=== PATIENT | male | born 1975 | race Caucasian/White ===

== ENCOUNTER 2019-12-15 16:41 | Emergency (ER) | payer BC ==
[~2019-12-15] VITALS: Ht 177.8 cm; Wt 104.3 kg
[~2019-12-15 16:41] MED LIST: BACTRIM DS TAB1 EACH PO; NORCO 5-325 TA1 EACH PO
[2019-12-15] MEDS ORDERED: CLONAZEPAM 0.50.5 M1 PO (16:58)
[2019-12-15 19:20] VITALS: BP 116/71
== END 2019-12-15 19:20 | disposition home or self-care (01) ==
LOC: M.ERS 16:41
DX: S13.4XXA Sprain of ligaments of cervical spine, initial encounter (principal); R07.81 Pleurodynia; R51 Headache; W18.39XA Other fall on same level, initial encounter; Y93.89 Activity, other specified; Y92.89 Other specified places as the place of occurrence of the external cause; Y99.8 Other external cause status